=== PATIENT | female | born 1985 | race Two or more races ===

== ENCOUNTER 2017-07-07 10:40 | Emergency (ER) | payer MEDICAID ==
[~2017-07-07] VITALS: Ht 157.5 cm; Wt 79.4 kg
[2017-07-07 11:05] VITALS: BP 136/79
[2017-07-07 11:41] LABS: Basophils # (auto) 0.1 uL; Basophils % (auto) 1.2 % (0.0-2.0); Eosinophils # (auto) 0.1 uL; Eosinophils % (auto) 1.2 % (0.0-7.0); Hematocrit 39.6 % (36.0-46.0); Hemoglobin 13.3 g/dL (12.2-16.2); Lymphocytes # (auto) 1.8 uL; Lymphocytes % (auto) 22.5 % (10.0-50.0); Mean Corpuscular Hemoglobin 28.6 pg (28.0-32.0); Mean Corpuscular Hgb Conc. 33.5 g/dL (32.0-36.0); Mean Corpuscular Volume 85.3 fL (80.0-100.0); Monocytes # (auto) 0.7 uL; Monocytes % (auto) 8.5 % (0.0-12.0); Neutrophils # (auto) 5.4 uL; Neutrophils % (auto) 66.6 % (37.0-80.0); Platelet Count (auto) 332 10^3/uL (140-450); Red Blood Cells 4.64 10^6/uL (4.0-5.20); Red Cell Distribution Width 13.8 % (11.8-14.3)
[2017-07-07 12:26] LABS: BUN/Creatinine Ratio 15.9; Bilirubin, Total 0.3 mg/dL (0.2-1.0); Calcium 8.8 mg/dL (8.5-10.1); Potassium 3.7 mmol/L (3.5-5.1); Total Protein 8.8 g/dL (6.4-8.2)
== END 2017-07-07 14:19 | disposition home or self-care (01) ==
LOC: ER 10:40
DX: K57.30 Diverticulosis of large intestine without perforation or abscess without bleeding (principal)
CPT/HCPCS: 36415; 74176; 80053; 81025; 84702; 85025

== ENCOUNTER 2017-07-23 05:01 | Emergency (ER) | payer MEDICAID ==
[~2017-07-23] VITALS: Ht 157.5 cm; Wt 79.4 kg
[2017-07-23 09:49] VITALS: BP 97/56
[2017-07-23] MEDS ORDERED: HYDROcodone-ACET 10/325MG TAB PO ONE (10:00)
== END 2017-07-23 10:56 | disposition home or self-care (01) ==
LOC: ER 05:01 → EDBD 05:01 → ER 10:56
DX: S02.2XXA Fracture of nasal bones, initial encounter for closed fracture (principal); M50.222 Other cervical disc displacement at C5-C6 level; Y04.8XXA Assault by other bodily force, initial encounter; Y93.89 Activity, other specified; Y92.89 Other specified places as the place of occurrence of the external cause; Y99.8 Other external cause status
CPT/HCPCS: 70450; 70486; 72125; 81025

== ENCOUNTER 2018-01-19 20:32 | Emergency (ER) | payer MEDICAID ==
[~2018-01-19] VITALS: Ht 157.5 cm; Wt 80.7 kg
[2018-01-19 21:17] LABS: Basophils # (auto) 0.1 uL; Basophils % (auto) 1.1 % (0.0-2.0); Eosinophils # (auto) 0.1 uL; Hematocrit 40.6 % (36.0-46.0); Hemoglobin 13.3 g/dL (12.2-16.2); Lymphocytes # (auto) 2.2 uL; Lymphocytes % (auto) 24.5 % (10.0-50.0); Mean Corpuscular Hemoglobin 28.7 pg (28.0-32.0); Mean Corpuscular Hgb Conc. 32.8 g/dL (32.0-36.0); Mean Corpuscular Volume 87.3 fL (80.0-100.0); Monocytes # (auto) 0.7 uL; Monocytes % (auto) 7.5 % (0.0-12.0); Neutrophils % (auto) 65.9 % (37.0-80.0); Nucleated Red Blood Cells % 0.1 %; Platelet Count (auto) 345 10^3/uL (140-450); Red Blood Cells 4.65 10^6/uL (4.0-5.20); Red Cell Distribution Width 13.4 % (11.8-14.3); White Blood Cell 9.1 10^3/uL (4.4-10.8)
[2018-01-19 21:31] LABS: Albumin 4.1 g/dL (3.4-5.0); BUN/Creatinine Ratio 17.2; Calcium 9.3 mg/dL (8.5-10.1); Potassium 3.8 mmol/L (3.5-5.1)
[2018-01-19 21:34] LABS: Bilirubin, Total 0.3 mg/dL (0.2-1.0); Total Protein 9.2 g/dL (6.4-8.2)
[2018-01-19 21:45] LABS: Urine Bacteria FEW /hpf (None Seen); Urine Blood 2+ /uL (Negative); Urine Mucus FEW (None Seen); Urine Specific Gravity 1.003 (1.001-1.035); Urine WBC 1 /hpf (0 - 5)
[2018-01-20 00:36] VITALS: BP 128/74
== END 2018-01-20 00:58 | disposition home or self-care (01) ==
LOC: ER 20:36
DX: F41.9 Anxiety disorder, unspecified (principal); F45.8 Other somatoform disorders
CPT/HCPCS: 36415; 70450; 80053; 81001; 84702; 85025

== ENCOUNTER 2020-10-31 19:03 | Emergency (ER) | payer MEDICAID ==
[~2020-10-31] VITALS: Ht 160 cm; Wt 81.6 kg
[2020-10-31 19:05] VITALS: BP 149/94
== END 2020-10-31 23:38 | disposition left against medical advice (07) ==
LOC: ER 19:03
DX: F41.9 Anxiety disorder, unspecified (principal); R42 Dizziness and giddiness

== ENCOUNTER 2021-05-17 13:05 | Emergency (ER) | payer MEDICAID ==
[~2021-05-17] VITALS: Ht 157.5 cm; Wt 85.7 kg
[2021-05-17 13:43] LABS: Urine WBC None Seen /hpf (0 - 5)
[2021-05-17 14:01] LABS: Urine Bacteria NONE SEEN /hpf (None Seen); Urine Blood 1+ /uL (Negative); Urine Specific Gravity 1.002 (1.001-1.035)
[2021-05-17 14:39] LABS: Basophils # (auto) 0 10 ^3/uL (0-0.2); Basophils % (auto) 0.7 % (0.0-2.0); Eosinophils # (auto) 0.1 10 ^3/uL (0-0.8); Eosinophils % (auto) 1.2 % (0.0-7.0); Hemoglobin 13.2 g/dL (12.2-16.2); Lymphocytes % (auto) 18.4 % (10.0-50.0); Mean Corpuscular Hemoglobin 28.5 pg (28.0-32.0); Mean Corpuscular Hgb Conc. 33.9 g/dL (32.0-36.0); Mean Corpuscular Volume 84.2 fL (80.0-100.0); Monocytes # (auto) 0.5 10 ^3/uL (0-1.3); Monocytes % (auto) 9.6 % (0.0-12.0); Neutrophils # (auto) 3.9 10 ^3/uL (1.6-8.6); Neutrophils % (auto) 70.1 % (37.0-80.0); Red Blood Cells 4.64 10^6/uL (4.0-5.20); Red Cell Distribution Width 13.5 % (11.8-14.3); White Blood Cell 5.6 10^3/uL (4.4-10.8)
[2021-05-17 14:44] LABS: INR 1.03 (0.9-1.15); Partial Thromboplastin Time 31.6 sec (23.6-33.0)
[2021-05-17 14:52] LABS: Albumin 3.7 g/dL (3.4-5.0); Calcium 8.4 mg/dL (8.5-10.1); Potassium 3.7 mmol/L (3.5-5.1)
[2021-05-17 14:55] LABS: BUN/Creatinine Ratio 11.6; Bilirubin, Total 0.3 mg/dL (0.2-1.0); Total Protein 8.1 g/dL (6.4-8.2)
[2021-05-17] MEDS ORDERED: ONDANSETRON HCL 4 MG/2 ML VIAL ONE (17:20)
[2021-05-17 17:23] VITALS: BP 126/81
[2021-05-17] MEDS ORDERED: ONDANSETRON HCL 4 MG/2 ML VIAL IV ONE (17:30)
== END 2021-05-17 18:19 | disposition home or self-care (01) ==
LOC: ER 13:05
DX: R10.9 Unspecified abdominal pain (principal); R11.2 Nausea with vomiting, unspecified; R19.7 Diarrhea, unspecified; Z88.5 Allergy status to narcotic agent; Z88.8 Allergy status to other drugs, medicaments and biological substances
CPT/HCPCS: 36415; 76856; 80053; 81001; 84702; 85025; 85610; 85730; 86850; 86900; 86901; 96374; 99284; J2405

== ENCOUNTER 2022-04-07 05:42 | Inpatient (IN) | payer MEDICAID ==
[~2022-04-07] VITALS: Ht 157.5 cm; Wt 78.7 kg
[2022-04-07] MEDS ORDERED: FAMOTIDINE 20 MG TAB PO ONE (06:30)
[2022-04-07] MEDS ORDERED: MAALOX PLUS or MAALOX 30 ML PO ONE (06:30)
[2022-04-07] MEDS ORDERED: LIDOCAINE VISCOUS 2% 15ML UD PO ONE (06:30)
[2022-04-07] MEDS ORDERED: ONDANSETRON ODT 4 MG TAB PO ONE (06:30)
[2022-04-07 06:44] LABS: Urine Bacteria FEW /hpf (None Seen); Urine Blood 2+ /uL (Negative); Urine Specific Gravity 1.017 (1.001-1.035); Urine WBC 3 /hpf (0 - 5)
[2022-04-07 07:14] LABS: Basophils # (auto) 0 10 ^3/uL (0-0.2); Basophils % (auto) 0.5 % (0.0-2.0); Eosinophils # (auto) 0.1 10 ^3/uL (0-0.8); Eosinophils % (auto) 1.8 % (0.0-7.0); Hematocrit 40.8 % (36.0-46.0); Lymphocytes # (auto) 1.2 10 ^3/uL (0.4-5.4); Lymphocytes % (auto) 16.7 % (10.0-50.0); Mean Corpuscular Hemoglobin 29.3 pg (28.0-32.0); Mean Corpuscular Hgb Conc. 34.4 g/dL (32.0-36.0); Mean Corpuscular Volume 85.2 fL (80.0-100.0); Monocytes # (auto) 0.6 10 ^3/uL (0-1.3); Monocytes % (auto) 8.3 % (0.0-12.0); Neutrophils # (auto) 5.4 10 ^3/uL (1.6-8.6); Neutrophils % (auto) 72.7 % (37.0-80.0); Nucleated Red Blood Cells % 0.1 %; Red Blood Cells 4.79 10^6/uL (4.0-5.20); Red Cell Distribution Width 13.4 % (11.8-14.3); White Blood Cell 7.4 10^3/uL (4.4-10.8)
[2022-04-07 07:33] LABS: Potassium 3.9 mmol/L (3.5-5.1)
[2022-04-07 07:39] LABS: BUN/Creatinine Ratio 15.7; Bilirubin, Total 0.2 mg/dL (0.2-1.0); Calcium 8.7 mg/dL (8.5-10.1); Total Protein 8.5 g/dL (6.4-8.2)
[2022-04-07] MEDS ORDERED: ONDANSETRON HCL 4 MG/2 ML VIAL IV ONE (08:00)
[2022-04-07] MEDS ORDERED: MORPHINE SULFATE 4 MG/ML SYR/VIAL IV ONE ×2 (08:00→14:30)
[2022-04-07] MEDS ORDERED: LACTATED RINGER'S 1,000 ML IV ONE (08:00)
[2022-04-07] MEDS ORDERED: LOPERAMIDE 1 mg/7.5ml ORAL soln PO ONE (08:00)
[2022-04-07] MEDS ORDERED: HYDROcodone-ACET 5/325MG TAB PO ONE (08:00)
[2022-04-07] MEDS ORDERED: TEMAZEPAM 15 MG CAP PO PRN (12:30)
[2022-04-07] MEDS ORDERED: MAALOX PLUS or MAALOX 30 ML PO PRN (12:30)
[2022-04-07] MEDS: ONDANSETRON HCL 4 MG/2 ML VIAL IV PRN ×2 (13:20→21:24)
[2022-04-07] MEDS: SODIUM CHLORIDE 0.9% 1,000 ML IV SCH ×3 (13:20→23:27)
[2022-04-07] MEDS: cefTRIAXone 1GM/50ML D5W 50 ML IV SCH (13:20)
[2022-04-07] MEDS: MORPHINE SULFATE INJ 2 MG/ml SYRG IV PRN ×3 (13:21→21:27)
[2022-04-07] MEDS ORDERED: METOCLOPRAMIDE HCL 5MG/ml INJ 2ml VIAL IV ONE (14:30)
[2022-04-07] MEDS: LORazepam 0.5 MG TAB PO PRN (17:16)
[2022-04-07 22:58] VITALS: BP 127/69
[2022-04-08] MEDS: MORPHINE SULFATE INJ 2 MG/ml SYRG IV PRN ×2 (02:57→09:17)
[2022-04-08] MEDS: SODIUM CHLORIDE 0.9% 1,000 ML IV SCH ×3 (04:43→18:30)
[2022-04-08 05:44] VITALS: BP 106/55
[2022-04-08 07:06] LABS: BUN/Creatinine Ratio 15.1; Basophils # (auto) 0 10 ^3/uL (0-0.2); Basophils % (auto) 0.6 % (0.0-2.0); Eosinophils # (auto) 0.1 10 ^3/uL (0-0.8); Eosinophils % (auto) 1.8 % (0.0-7.0); Hematocrit 33.7 % (36.0-46.0); Hemoglobin 11.4 g/dL (12.2-16.2); Lymphocytes # (auto) 2.3 10 ^3/uL (0.4-5.4); Lymphocytes % (auto) 40.7 % (10.0-50.0); Mean Corpuscular Hemoglobin 28.7 pg (28.0-32.0); Mean Corpuscular Hgb Conc. 33.8 g/dL (32.0-36.0); Mean Corpuscular Volume 84.7 fL (80.0-100.0); Monocytes # (auto) 0.6 10 ^3/uL (0-1.3); Monocytes % (auto) 10.7 % (0.0-12.0); Neutrophils # (auto) 2.6 10 ^3/uL (1.6-8.6); Neutrophils % (auto) 46.2 % (37.0-80.0); Nucleated Red Blood Cells % 0.1 %; Potassium 3.6 mmol/L (3.5-5.1); Red Blood Cells 3.98 10^6/uL (4.0-5.20); Red Cell Distribution Width 13.3 % (11.8-14.3); White Blood Cell 5.7 10^3/uL (4.4-10.8)
[2022-04-08 09:00] VITALS: BP 105/59
[2022-04-08] MEDS: ONDANSETRON HCL 4 MG/2 ML VIAL IV PRN (09:16)
[2022-04-08] MEDS: cefTRIAXone 1GM/50ML D5W 50 ML IV SCH (10:25)
[2022-04-08 13:00] VITALS: BP 123/62
[2022-04-08 17:00] VITALS: BP 111/55
[2022-04-08] MEDS: HYDROcodone-ACET 5/325MG TAB PO PRN (18:05)
[2022-04-08 22:00] VITALS: BP 122/65
[2022-04-08 22:25] VITALS: BP 138/63
[2022-04-09 04:58] VITALS: BP 101/60
[2022-04-09] MEDS: SODIUM CHLORIDE 0.9% 1,000 ML IV SCH ×4 (05:02→23:55)
[2022-04-09] MEDS: DOCUSATE SOD 100 MG CAP PO PRN (08:48)
[2022-04-09] MEDS: PANTOPRAZOLE 40 MG/10 ML VIAL INJ IV SCH (08:49)
[2022-04-09] MEDS: cefTRIAXone 1GM/50ML D5W 50 ML IV SCH (08:49)
[2022-04-09 08:58] VITALS: BP 113/62
[2022-04-09 13:09] VITALS: BP 125/78
[2022-04-09] MEDS: HYDROcodone-ACET 5/325MG TAB PO PRN (15:05)
[2022-04-09 16:46] VITALS: BP 122/62
[2022-04-09 22:00] VITALS: BP 123/72
[2022-04-10 05:00] VITALS: BP 108/64
[2022-04-10] MEDS: SODIUM CHLORIDE 0.9% 1,000 ML IV SCH ×4 (05:52→23:35)
[2022-04-10 07:24] LABS: Basophils # (auto) 0.1 10 ^3/uL (0-0.2); Basophils % (auto) 1.2 % (0.0-2.0); Eosinophils # (auto) 0.1 10 ^3/uL (0-0.8); Eosinophils % (auto) 2.7 % (0.0-7.0); Hemoglobin 12.4 g/dL (12.2-16.2); Lymphocytes % (auto) 40.7 % (10.0-50.0); Mean Corpuscular Hemoglobin 29.1 pg (28.0-32.0); Mean Corpuscular Hgb Conc. 34.5 g/dL (32.0-36.0); Mean Corpuscular Volume 84.2 fL (80.0-100.0); Monocytes # (auto) 0.4 10 ^3/uL (0-1.3); Neutrophils # (auto) 2.3 10 ^3/uL (1.6-8.6); Neutrophils % (auto) 46.4 % (37.0-80.0); Nucleated Red Blood Cells % 0.3 %; Red Blood Cells 4.27 10^6/uL (4.0-5.20); Red Cell Distribution Width 13.4 % (11.8-14.3); White Blood Cell 4.9 10^3/uL (4.4-10.8)
[2022-04-10 07:31] LABS: INR 1.03 (0.9-1.15); Partial Thromboplastin Time 31.6 sec (24.6-33.4)
[2022-04-10 07:41] LABS: Calcium 8.4 mg/dL (8.5-10.1); Potassium 4.2 mmol/L (3.5-5.1)
[2022-04-10 07:44] LABS: BUN/Creatinine Ratio 8.5
[2022-04-10 09:00] VITALS: BP 113/68
[2022-04-10] MEDS: cefTRIAXone 1GM/50ML D5W 50 ML IV SCH (09:25)
[2022-04-10] MEDS: PANTOPRAZOLE 40 MG/10 ML VIAL INJ IV SCH (09:25)
[2022-04-10] MEDS ORDERED: fentaNYL CITRATE 100 MCG/2 ML VL ONE (11:33)
[2022-04-10] MEDS ORDERED: MEPERIDINE HCL (50 MG/ML) 1 ML VIAL ONE (11:33)
[2022-04-10] MEDS ORDERED: MIDAZOLAM HCL 2MG/2ML 2ml VIAL (1mg/ml) ONE (11:33)
[2022-04-10] MEDS ORDERED: BUPIVACAINE 0.5% P/F INJ 10 ML VIAL ONE (12:40)
[2022-04-10 13:00] VITALS: BP 124/66
[2022-04-10] MEDS ORDERED: DexAMETHasone SOD PHOS 10MG/1ML VIAL INJ ONE (13:12)
[2022-04-10] MEDS ORDERED: ceFAZolin 1GM/50ML 50 ML IV ONE (13:41)
[2022-04-10] MEDS ORDERED: ePHEDrine SULFATE 50 MG/ML AMP IV PRN (13:45)
[2022-04-10] MEDS ORDERED: ONDANSETRON HCL 4 MG/2 ML VIAL IV PRN (13:45)
[2022-04-10] MEDS ORDERED: LABETALOL HCL 5 MG/ML 4ML SYRINGE IV PRN (13:45)
[2022-04-10] MEDS ORDERED: MIDAZOLAM HCL 2MG/2ML 2ml VIAL (1mg/ml) IV PRN (13:45)
[2022-04-10] MEDS ORDERED: hydrALAZINE HCL 20 MG/ML VL IV PRN (13:45)
[2022-04-10] MEDS ORDERED: MORPHINE SULFATE INJ 2 MG/ml SYRG IV PRN (13:45)
[2022-04-10] MEDS: HYDROmorphone HCL 2 MG/ML VL/or syr IV PRN ×3 (15:22→16:00)
[2022-04-10 17:00] VITALS: BP 141/85
[2022-04-10] MEDS: MORPHINE SULFATE INJ 2 MG/ml SYRG IV PRN ×2 (18:31→22:54)
[2022-04-10] MEDS: HYDROcodone-ACET 5/325MG TAB PO PRN (21:15)
[2022-04-10 22:00] VITALS: BP 128/74
[2022-04-10] MEDS: ONDANSETRON HCL 4 MG/2 ML VIAL IV PRN (22:58)
[2022-04-11] MEDS: MORPHINE SULFATE INJ 2 MG/ml SYRG IV PRN (04:44)
[2022-04-11 05:00] VITALS: BP 129/78
[2022-04-11] MEDS: SODIUM CHLORIDE 0.9% 1,000 ML IV SCH (06:15)
[2022-04-11] MEDS ORDERED: MORPHINE SULFATE INJ 2 MG/ml SYRG IV PRN (08:15)
[2022-04-11] MEDS: cefTRIAXone 1GM/50ML D5W 50 ML IV SCH (08:24)
[2022-04-11] MEDS: HYDROcodone-ACET 5/325MG TAB PO PRN ×3 (08:24→20:42)
[2022-04-11] MEDS: PANTOPRAZOLE 40 MG/10 ML VIAL INJ IV SCH (08:24)
[2022-04-11 09:00] VITALS: BP 136/83
[2022-04-11] MEDS: LACTATED RINGER'S 1,000 ML IV SCH ×2 (09:26→16:35)
[2022-04-11 10:35] LABS: Basophils # (auto) 0 10 ^3/uL (0-0.2); Basophils % (auto) 0.3 % (0.0-2.0); Eosinophils # (auto) 0 10 ^3/uL (0-0.8); Hematocrit 36.5 % (36.0-46.0); Hemoglobin 12.4 g/dL (12.2-16.2); Lymphocytes # (auto) 1.3 10 ^3/uL (0.4-5.4); Lymphocytes % (auto) 12.7 % (10.0-50.0); Mean Corpuscular Hemoglobin 28.9 pg (28.0-32.0); Monocytes # (auto) 0.8 10 ^3/uL (0-1.3); Monocytes % (auto) 7.9 % (0.0-12.0); Neutrophils # (auto) 8.2 10 ^3/uL (1.6-8.6); Neutrophils % (auto) 79.1 % (37.0-80.0); Nucleated Red Blood Cells % 0.1 %; Red Cell Distribution Width 13.5 % (11.8-14.3); White Blood Cell 10.3 10^3/uL (4.4-10.8)
[2022-04-11 10:41] LABS: Albumin 3.7 g/dL (3.4-5.0); Calcium 8.4 mg/dL (8.5-10.1); Potassium 3.4 mmol/L (3.5-5.1)
[2022-04-11 10:45] LABS: BUN/Creatinine Ratio 12.5; Bilirubin, Total 0.4 mg/dL (0.2-1.0)
[2022-04-11 13:00] VITALS: BP 102/59
[2022-04-11 17:00] VITALS: BP 126/68
[2022-04-11] MEDS: DOCUSATE SOD 100 MG CAP PO PRN (20:47)
[2022-04-11] MEDS: LORazepam 0.5 MG TAB PO PRN (21:41)
[2022-04-11 22:00] VITALS: BP 139/91
[2022-04-12] VITALS (7 sets, daily range): BP systolic 102–127; BP diastolic 59–72
[2022-04-12] MEDS: LACTATED RINGER'S 1,000 ML IV SCH ×2 (00:30→08:30)
[2022-04-12] MEDS: ONDANSETRON HCL 4 MG/2 ML VIAL IV PRN ×2 (00:42→09:31)
[2022-04-12] MEDS ORDERED: HYDR-4902 PO (08:18)
[2022-04-12] MEDS ORDERED: METR500T PO (08:18)
[2022-04-12] MEDS ORDERED: LEVO500T31 PO (08:18)
[2022-04-12] MEDS ORDERED: SODIUM CHLORIDE 0.9% 1,000 ML IV ONE (08:45)
[2022-04-12] MEDS: cefTRIAXone 1GM/50ML D5W 50 ML IV SCH (09:24)
[2022-04-12] MEDS: PANTOPRAZOLE 40 MG/10 ML VIAL INJ IV SCH (09:26)
[2022-04-12] MEDS: HYDROcodone-ACET 5/325MG TAB PO PRN ×2 (09:28→15:49)
[2022-04-12] MEDS ORDERED: LORazepam 2MG/ML-1ML VIAL ONE (11:10)
[2022-04-12] MEDS ORDERED: LORazepam 2MG/ML-1ML VIAL IV PRN (11:15)
[2022-04-12] MEDS ORDERED: metroNIDAZOLE 500MG/100ML 100 ML IV ONE (11:30)
[2022-04-12] MEDS ORDERED: SODIUM CHLORIDE 0.9% 3,000 ML IV ONE (11:30)
[2022-04-12] MEDS ORDERED: ACETAMINOPHEN 325 MG TAB PO ONE (11:30)
[2022-04-12 12:22] LABS: Basophils # (auto) 0 10 ^3/uL (0-0.2); Basophils % (auto) 0.3 % (0.0-2.0); Eosinophils # (auto) 0 10 ^3/uL (0-0.8); Hematocrit 34.6 % (36.0-46.0); Hemoglobin 11.6 g/dL (12.2-16.2); Lymphocytes # (auto) 0.5 10 ^3/uL (0.4-5.4); Lymphocytes % (auto) 8.4 % (10.0-50.0); Mean Corpuscular Hemoglobin 28.5 pg (28.0-32.0); Mean Corpuscular Hgb Conc. 33.6 g/dL (32.0-36.0); Mean Corpuscular Volume 84.8 fL (80.0-100.0); Monocytes # (auto) 0.1 10 ^3/uL (0-1.3); Monocytes % (auto) 1.7 % (0.0-12.0); Neutrophils # (auto) 5.8 10 ^3/uL (1.6-8.6); Neutrophils % (auto) 89.6 % (37.0-80.0); Nucleated Red Blood Cells % 0.1 %; Red Blood Cells 4.07 10^6/uL (4.0-5.20); Red Cell Distribution Width 13.8 % (11.8-14.3); White Blood Cell 6.4 10^3/uL (4.4-10.8)
[2022-04-12 12:52] LABS: Albumin 3.1 g/dL (3.4-5.0); Calcium 7.9 mg/dL (8.5-10.1); Potassium 3.3 mmol/L (3.5-5.1)
[2022-04-12 12:54] LABS: Bilirubin, Total 0.7 mg/dL (0.2-1.0); Total Protein 6.7 g/dL (6.4-8.2)
[2022-04-12] MEDS ORDERED: metroNIDAZOLE 500MG/100ML 100 ML IV SCH (14:00)
[2022-04-12] MEDS: D5W/SOD CHL 0.45% 1,000 ML IV SCH (15:00)
[2022-04-12 15:21] LABS: Urine WBC None Seen /hpf (0 - 5)
[2022-04-12 15:46] LABS: Urine Bacteria NONE SEEN /hpf (None Seen); Urine Blood 2+ /uL (Negative); Urine Mucus FEW (None Seen); Urine Specific Gravity 1.006 (1.001-1.035)
[2022-04-12] MEDS: metroNIDAZOLE 500MG/100ML 100 ML IV SCH (20:40)
[2022-04-13] MEDS: HYDROcodone-ACET 5/325MG TAB PO PRN (01:00)
[2022-04-13] MEDS: metroNIDAZOLE 500MG/100ML 100 ML IV SCH ×3 (03:40→20:41)
[2022-04-13 05:00] VITALS: BP 140/83
[2022-04-13 06:23] LABS: Basophils # (auto) 0 10 ^3/uL (0-0.2); Basophils % (auto) 0.6 % (0.0-2.0); Eosinophils # (auto) 0 10 ^3/uL (0-0.8); Eosinophils % (auto) 0.3 % (0.0-7.0); Hematocrit 34.8 % (36.0-46.0); Hemoglobin 11.4 g/dL (12.2-16.2); Lymphocytes # (auto) 0.6 10 ^3/uL (0.4-5.4); Lymphocytes % (auto) 10.6 % (10.0-50.0); Mean Corpuscular Hemoglobin 27.9 pg (28.0-32.0); Mean Corpuscular Hgb Conc. 32.8 g/dL (32.0-36.0); Mean Corpuscular Volume 85.3 fL (80.0-100.0); Monocytes # (auto) 0.3 10 ^3/uL (0-1.3); Monocytes % (auto) 6.1 % (0.0-12.0); Neutrophils # (auto) 4.7 10 ^3/uL (1.6-8.6); Neutrophils % (auto) 82.4 % (37.0-80.0); Red Blood Cells 4.08 10^6/uL (4.0-5.20); Red Cell Distribution Width 13.6 % (11.8-14.3); White Blood Cell 5.7 10^3/uL (4.4-10.8)
[2022-04-13] MEDS: D5W/SOD CHL 0.45% 1,000 ML IV SCH ×2 (06:43→17:10)
[2022-04-13 07:05] LABS: Albumin 2.7 g/dL (3.4-5.0); BUN/Creatinine Ratio 14.1; Calcium 7.8 mg/dL (8.5-10.1)
[2022-04-13 07:08] LABS: Bilirubin, Total 0.6 mg/dL (0.2-1.0); Total Protein 6.6 g/dL (6.4-8.2)
[2022-04-13] MEDS ORDERED: POTASSIUM EFFERVESENT TAB 25 MEQ PO ONE (08:45)
[2022-04-13 09:00] VITALS: BP 118/80
[2022-04-13] MEDS ORDERED: LORazepam 0.5 MG TAB PO PRN (09:00)
[2022-04-13] MEDS: PANTOPRAZOLE 40 MG/10 ML VIAL INJ IV SCH (10:51)
[2022-04-13] MEDS: cefTRIAXone 1GM/50ML D5W 50 ML IV SCH (10:51)
[2022-04-13] MEDS: ONDANSETRON HCL 4 MG/2 ML VIAL IV PRN ×2 (10:52→20:41)
[2022-04-13 13:02] VITALS: BP 120/83
[2022-04-13] MEDS: DOCUSATE SOD 100 MG CAP PO PRN (13:45)
[2022-04-13] MEDS: ACETAMINOPHEN 325 MG TAB PO PRN ×2 (13:51→23:01)
[2022-04-13 16:52] VITALS: BP 122/78
[2022-04-13 22:00] VITALS: BP 127/79
[2022-04-14] MEDS: metroNIDAZOLE 500MG/100ML 100 ML IV SCH (04:37)
[2022-04-14 05:00] VITALS: BP 122/76
[2022-04-14] MEDS: D5W/SOD CHL 0.45% 1,000 ML IV SCH (06:30)
[2022-04-14 08:00] VITALS: BP 110/66
[2022-04-14 11:24] VITALS: BP 110/66
== END 2022-04-14 12:08 | disposition home or self-care (01) | DRG 263 ==
LOC: ER 05:42 → OVERFLOW 12:30 → CENTRAL 21:30 → TELE-CENTR 04-12 15:29
PROVIDERS: ADMIT Hospitalist; ATTEND Family Medicine
PROC: 0FT44ZZ Resection of Gallbladder, Percutaneous Endoscopic Approach (ICD-10-PCS; principal; 2022-04-10 13:46)
DX: K85.10 Biliary acute pancreatitis without necrosis or infection (principal); K80.00 Calculus of gallbladder with acute cholecystitis without obstruction; E66.9 Obesity, unspecified; N39.0 Urinary tract infection, site not specified; E86.0 Dehydration; F41.9 Anxiety disorder, unspecified; Z83.3 Family history of diabetes mellitus; Z88.6 Allergy status to analgesic agent; Z88.8 Allergy status to other drugs, medicaments and biological substances; Z68.32 Body mass index [BMI] 32.0-32.9, adult
CPT/HCPCS: 36415; 71045; 74021; 74176; 76705; 78226; 80048; 80053; 81001; 81025; 82962; 83605; 83690; 84702; 85025; 85610; 85730; 86850; 86900; 86901; 87040; 87086; 87426; 93005; 96361; 96365; C9113; G0378; J0690; J0696; J1100; J2250; J2405; J3490; Q0162

== ENCOUNTER 2025-01-31 08:28 | Emergency (ER) | payer MEDICAID ==
[~2025-01-31] VITALS: Ht 157.5 cm; Wt 86.7 kg
[~2025-01-31 08:28] MED LIST: HYDR-4902 PO; LEVO500T31 PO; METR500T PO
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
[2025-01-31 09:27] LABS: Urine Protein, UAD TRACE (Negative)
[2025-01-31] MEDS ORDERED: ZOFR4T PO (09:34)
[2025-01-31] MEDS ORDERED: IBUP-1456 PO (09:34)
[2025-01-31] MEDS: KETOROLAC TROMETH 60MG/2ML VIAL IM ONE (09:42)
[2025-01-31 09:44] VITALS: BP 134/89; PULSE 75; RESP 18; TEMP 98.5; O2SAT 98
== END 2025-01-31 09:46 | disposition home or self-care (01) ==
LOC: ER 08:28
DX: S39.012A Strain of muscle, fascia and tendon of lower back, initial encounter (principal); Z79.1 Long term (current) use of non-steroidal anti-inflammatories (NSAID); Z88.6 Allergy status to analgesic agent; Z88.8 Allergy status to other drugs, medicaments and biological substances; Z90.49 Acquired absence of other specified parts of digestive tract; X58.XXXA Exposure to other specified factors, initial encounter; Y93.89 Activity, other specified; Y92.89 Other specified places as the place of occurrence of the external cause; Y99.8 Other external cause status
CPT/HCPCS: 81001; 96372; 99283; J1885